=== PATIENT | male | born 1985 | race Caucasian/White ===

== ENCOUNTER 2016-10-18 17:33 | Emergency (ER) | payer BC, OTHER ==
[2016-10-18] MEDS ORDERED: NORMAL SALINE 1,000 ML IV ONE ×2 (17:49→19:34)
--- NOTE | 2016-10-18 17:56 | ERNOTE ---
Abdominal HPI - Narrative Date of Service: 10/18/16 - General Chief Complaint: Abdominal Pain Time Seen by Provider: 10/18/16 17:36 Source: patient Exam Limitations: no limitations - Immun/Allergies/Home Medications Immunizatons: IMMUNIZATION HX Immunizations Up to Date Yes History of Influenza Vaccine No Hx Pneumococcal Vaccination No Allergies/Adverse Reactions: Allergies azithromycin Allergy (Verified 10/18/16 17:41) Home Medications: HOME MEDICATIONS Loratadine/Pseudoephedrine [Claritin-D 24 Hour Tablet] 1 each PO DAILY PRN 03/17 [Last Taken Unknown] - History of Present Illness Narrative: patient presents to the ED from Urgent Care. he ahs been sick since . He had left lateral abdominal pain starting . This has waxed and waned. He has not had vomiting, one episode of diarrhea. he has been having fevers with this and chills with sweats at night. He went to and was sent here d/t fever and high heart rate. Nothing makes this better or worse. Minimal cough, no SOB. Timing: constant Quality: mild Activities at Onset: none Modifying Factors - (Improves): Present: other - nothing Modifying Factors - (Worsens): Present: other - nothing Associated Symptoms: Absent: headache, fever/chills, heartburn Prior Abdominal Problems: Present: none Prior Treatment: Absent: recently seen Review of Systems - Review of Systems Constitutional: Present: fever EYE: Present: no symptoms reported ENT: Present: no symptoms reported Respiratory: Absent: shortness of breath Cardiology: Absent: chest pain Gastrointestinal/Abdominal: Present: See HPI Genitourinary: Absent: dysuria All Other Systems: All systems neg except as marked - Patient's Past Medical History Patient History - Medical: Other Patient History - Cardiac/Respiratory: No pertinent hx Patient History - Cancer: No Hx of Cancer Patient History - Surgical Procedures: No surgical history Patient History - Other: None - Social History Living Situations: home Abuse History: No History of abuse Psych History: No pertinent hx Smoking Status: Never smoker Drug Use: none - Immunizations Immunizations Up to Date: Yes Hx Pneumococcal Vaccination: No History of Influenza Vaccine: No Physical Exam - Physical Exam General Appearance: Present: alert, no apparent distress Head Exam: Present: normal inspection, no evidence of injury Eye Exam: Normal inspection: bilateral, PERRL: bilateral Ears, Nose, Throat: Present: normal ENT inspection Neck: Present: normal inspection Respiratory: Present: no respiratory distress, normal breath sounds, no accessory muscle use, lungs clear Cardiovascular/Chest: Present: regular rate, rhythm Gastrointestinal/Abdominal: Present: normal bowel sounds, nondistended, soft, other - left mid abd low abdominal tenderness Back Exam: Present: normal inspection, normal range of motion, no CVA tenderness Extremity Exam: Present: normal inspection, normal range of motion Neurological Exam: Present: alert, normal mood/affect, no motor/sensory deficits , 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 Absent: motor weakness Skin Exam: Present: normal color, warm/dry ED Progress - Results and Orders Patient's Lab Results:: I have reviewed the patient's lab results. - Vital Signs Patient's Vital Signs:: I have reviewed the patient's vital signs. Vital Signs: Vital Signs 10/18/16 17:37 Temperature 37.6 C H Pulse Rate 125 H Respiratory 18 Rate Blood Pressure 152/93 O2 Sat by Pulse 99 Oximetry - Progress/Reassessment Chief Complaint: Abdominal Pain - Transfer of Care Physician Sign Out: Maldonado Rodas Receiving Physician: Hermes Ball Pending Results: CT/MRI results, Labs Departure - Departure Clinical Impression: Fever Condition: Stable Referrals: Lalo Kang MD [Primary Care Provider] -
[2016-10-18 18:04] LABS: Hematocrit 43.7 % (42.0-52.0); Hemoglobin 14.7 gm/dL (13.5-18.0); Mean Cell Volume 82.5 fl (78-100); Mean Corpuscular Hemoglobin 27.7 pg (27-31); Mean Corpuscular Hgb Conc 33.6 g/dl (32-36); Mean Platelet Volume 10.4 fl (6.0-9.5); Neutrophil # 2.3 K/mm3 (1.3-6.0); Neutrophil % 67.4 % (42-75.0); Platelet Count 161 K/mm3 (150-450); Red Cell Distribution Width 12.6 % (11.5-14.0); White Blood Count 3.3 K/mm3 (4.0-10.5)
[2016-10-18 18:14] LABS: Albumin * 3.9 gm/dl (3.4-5.0); Anion Gap 14.7 mmol/L (6.8-13.8); BUN/Creatinine Ratio 5.5 (9.0-21.6); Bilirubin, Total 0.4 mg/dL (0.0-1.1); CRP 2.7 mg/dL (0.0-0.9); Ca. Corrected For Albumin 8.8 mg/dL (8.4-10.2); Carbon Dioxide 25.2 mmol/L (24-32.6); Potassium 3.9 mmol/L (3.4-4.6); Total Protein 7.6 gm/dL (6.2-8.2)
[2016-10-18] MEDS ORDERED: DIATRIZOATE MEGLUMINE, SODIUM 30 ML BTL PO ONE (19:19)
[2016-10-18] MEDS ORDERED: DIATRIZOATE MEGLUMINE, SODIUM 30 ML BTL ONE (19:22)
[2016-10-18 19:52] LABS: Urine Bilirubin Negative (NEGATIVE); Urine Blood Negative /ul (NEGATIVE); Urine Ketone 5 mg/dL (NEGATIVE); Urine Nitrite Negative (NEGATIVE); Urine Protein Negative (NEGATIVE); Urine Specific Gravity 1.015 SP.GR. (1.005-1.030); Urine Urobilinogen Normal (NORMAL)
[2016-10-18 20:02] LABS: Urine Appearance Clear; Urine Color Yellow
[2016-10-18 20:03] LABS: Urine Bacteria None Seen; Urine RBC None Seen /hpf (0-5); Urine WBC None Seen /hpf (0-5)
--- NOTE | 2016-10-18 21:41 | ERNOTE ---
Abdominal HPI - General Chief Complaint: Abdominal Pain Time Seen by Provider: 10/18/16 17:36 Source: patient Exam Limitations: no limitations - Immun/Allergies/Home Medications Immunizatons: IMMUNIZATION HX Immunizations Up to Date Yes History of Influenza Vaccine No Hx Pneumococcal Vaccination No Allergies/Adverse Reactions: Allergies azithromycin Allergy (Verified 10/18/16 17:41) Home Medications: HOME MEDICATIONS Loratadine/Pseudoephedrine [Claritin-D 24 Hour Tablet] 1 each PO DAILY PRN 03/17 [Last Taken Unknown] - History of Present Illness Narrative: assumed care from Dr. Rodas. Awaiting CT results. Pt states his worst abdominal pain was last and today it was a minor discomfort. He was more concerned with his fever. Timing: other - improving Quality: aching Activities at Onset: none Modifying Factors - (Improves): Present: rest Associated Symptoms: Absent: nausea, vomiting - or diarrhea Prior Abdominal Problems: Present: none Review of Systems - Review of Systems Constitutional: Absent: recent illness EYE: Present: no symptoms reported ENT: Present: no symptoms reported Respiratory: Present: no symptoms reported Cardiology: Present: no symptoms reported Gastrointestinal/Abdominal: Present: constipation - may have had some lately Genitourinary: Present: no symptoms reported Musculoskeletal: Present: muscle pain - he has been wondering if this is muscular pain Skin: Present: no symptoms reported Endocrine: Present: excessive sweating Hematologic/Lymphatic: Present: no symptoms reported Psych: Present: no symptoms reported - Patient's Past Medical History Patient History - Medical: Other Patient History - Cardiac/Respiratory: No pertinent hx Patient History - Cancer: No Hx of Cancer Patient History - Surgical Procedures: No surgical history Patient History - Other: None - Social History Living Situations: home Abuse History: No History of abuse Psych History: No pertinent hx Smoking Status: Never smoker Drug Use: none - Immunizations Immunizations Up to Date: Yes Hx Pneumococcal Vaccination: No History of Influenza Vaccine: No Physical Exam - Physical Exam General Appearance: Present: wd/wn, alert, no apparent distress Head Exam: Present: normal inspection, no evidence of injury Eye Exam: Normal inspection: bilateral Respiratory: Present: no respiratory distress, no accessory muscle use Gastrointestinal/Abdominal: Present: normal bowel sounds, tenderness - LLQ minimal. Absent: distended, guarding, rebound Back Exam: Present: normal inspection, normal range of motion, no CVA tenderness Neurological Exam: Present: alert, oriented, normal mood/affect Skin Exam: Present: normal color, warm/dry ED Progress - Results and Orders Patient's Lab Results:: I have reviewed the patient's lab results. Results and Orders: Laboratory Tests 10/18/16 10/18/16 10/18/16 17:48 17:48 19:47 WBC 3.3 L Hgb 14.7 Hct 43.7 Plt Count 161 Sodium 138 Potassium 3.9 Chloride 102 Carbon Dioxide 25.2 BUN 6 Creatinine 1.09 Random Glucose 110 Lactic Acid, Venous Calcium 9.0 Total Bilirubin 0.4 AST 17 ALT 18 L Alkaline Phosphatase 68 C-Reactive Prot, Quant 2.7 H Total Protein 7.6 Albumin 3.9 Lipase 163 Urine Color Yellow Urine Appearance Clear Urine pH 7.0 Ur Specific [place] 1.015 Urine Protein Negative Urine Glucose (UA) Negative Urine Ketones 5 Urine Blood Negative Urine Nitrate Negative Urine Bilirubin Negative Urine Urobilinogen Normal Ur Leukocyte Esterase Negative Urine RBC None seen Urine WBC None seen Ur Epithelial Cells 0-5 Urine Bacteria None seen Urine Culture Comments No culture indicated 10/18/16 21:35 WBC Hgb Hct Plt Count Sodium Potassium Chloride Carbon Dioxide BUN Creatinine Random Glucose Lactic Acid, Venous 0.9 Calcium Total Bilirubin AST ALT Alkaline Phosphatase C-Reactive Prot, Quant Total Protein Albumin Lipase Urine Color Urine Appearance Urine pH Ur Specific [place] Urine Protein Urine Glucose (UA) Urine Ketones Urine Blood Urine Nitrate Urine Bilirubin Urine Urobilinogen Ur Leukocyte Esterase Urine RBC Urine WBC Ur Epithelial Cells Urine Bacteria Urine Culture Comments - Vital Signs Patient's Vital Signs:: I have reviewed the patient's vital signs. Vital Signs: Vital Signs 10/18/16 10/18/16 10/18/16 17:37 18:27 19:27 Temperature 37.6 C H 37.7 C H 37.3 C Pulse Rate 125 H 114 H 102 H Respiratory 18 16 16 Rate Blood Pressure 152/93 140/92 143/86 O2 Sat by Pulse 99 98 99 Oximetry 10/18/16 20:33 Temperature 37.3 C Pulse Rate 112 H Respiratory 18 Rate Blood Pressure 146/86 O2 Sat by Pulse 100 Oximetry - CT/Ultrasound CT/Ultrasound Narrative: CT abd/pelvis with contrast. IMPRESSION: No evidence of bowel obstruction. The appendix fills normally with contrast and there is no periappendiceal fat stranding. However, there is mild appendiceal wall thickening and the appendix is mildly distended. Correlate for clinical signs of appendicitis. There is trace pelvic free fluid, which is abnormal for a male patient. No evidence of abscess. Additional findings and comments are as above. Electronically signed by Case Cleary D.O.. - Progress/Reassessment Chief Complaint: Abdominal Pain Progress:: Improved Progress Note-Subjective: 10/18/16 22:11 Examined patient after getting CT results. Pt does not and did not have any RLQ abdominal tenderness. Pt feels that his abdominal pain improved after a large BM on Tuesday then he began to have fever Tuesday and cough started Tuesday. His did not have fever most of the day today but then it began to elevate tonight and he came to the ED. Discussed suggestion of viral illness in history and in lowered WBC. Departure - Departure Clinical Impression: Viral illness Fever Qualifiers: Fever type: unspecified Qualified Code(s): R50.9 - Fever, unspecified Disposition: Home self-care Condition: Good Instructions: Viral Respiratory Infection, [id number] Additional Instructions: See your regular doctor or return to the ER if your abdominal pain returns or if not continuing to improve. Referrals: Lalo Kang MD [Primary Care Provider] -
[2016-10-18 22:42] VITALS: BP 124/84
== END 2016-10-18 22:20 | disposition home or self-care (01) ==
LOC: ER 17:33
DX: B34.9 Viral infection, unspecified (principal); R50.9 Fever, unspecified